=== PATIENT | female | born 1995 | race Caucasian/White ===

== ENCOUNTER 2017-03-27 22:51 | Emergency (ER) | payer MEDICARE, BC ==
[~2017-03-27] VITALS: Ht 152.4 cm; Wt 95.0 kg
[~2017-03-27 22:51] MED LIST: BUPR-34 PO; DICY10CA60 PO; HYDR-3498 PO; NAPR-688 PO; NITR-58 PO; ONDA4TAB14 PO; ZIPR40CA2 PO
[2017-03-27 23:23] VITALS: Ht 152.4 cm; Wt 95.0 kg
[2017-03-28] MEDS ORDERED: morphine 4 MG/ML VIAL IV STA ×2 (01:41→04:45)
[2017-03-28] MEDS ORDERED: ONDANSETRON 4 MG INJ IV STA ×2 (01:41→04:45)
[2017-03-28] MEDS ORDERED: SOD CHLORIDE 0.9% 1,000 ML IV STA (01:41)
[2017-03-28 02:38] LABS: BASOPHIL # 0.1 10^3/ul (0.0-0.1); BASOPHILS % 0.5 % (0.0-2.0); EOSINOPHILS # 0.1 10^3/ul (0.0-0.5); EOSINOPHILS % 1.2 % (0.0-7.0); HEMATOCRIT 42.5 % (37.0-47.0); HEMOGLOBIN 13.6 g/dl (12.0-16.0); LYMPHOCYTES # 3.1 10^3/ul (0.8-2.9); LYMPHOCYTES % 30.2 % (15.0-51.0); MEAN CORPUSCULAR HEMOGLOBIN 30.2 pg (29.0-33.0); MEAN CORPUSCULAR VOLUME 94.4 fl (82.0-101.0); MEAN PLATELET VOLUME 10.9 fl (7.4-10.4); MONOCYTE # 0.8 10^3/ul (0.3-0.9); MONOCYTES % 7.9 % (0.0-11.0); NEUTROPHIL # 6.1 10^3/ul (1.6-7.5); PLATELET COUNT 279 10^3/UL (140-415); RED CELL DISTRIBUTION WIDTH 12.8 % (11.5-14.5); WHITE BLOOD COUNT 10.2 10^3/ul (4.8-10.8)
[2017-03-28 02:48] LABS: ADD UMIC NO; UR ASCORBIC ACID NEGATIVE (NEGATIVE); UR BACTERIA FEW /HPF (NONE SEEN); UR BILIRUBIN (Dip) NEGATIVE (NEGATIVE); UR BLOOD (Dip) NEGATIVE (NEGATIVE); UR BUDDING YEAST MODERATE /HPF (NONE SEEN); UR CLARITY SLIGHTLY CLOUDY (CLEAR); UR COLOR YELLOW (YELLOW); UR GLUCOSE (Dip) NEGATIVE (NEGATIVE); UR KETONES (Dip) NEGATIVE (NEGATIVE); UR LEUKOCYTE ESTERASE (Dip) NEGATIVE Leu/ul (NEGATIVE); UR NITRITE (Dip) NEGATIVE (NEGATIVE); UR RBC 1 /HPF (0-5); UR SPECIFIC GRAVITY (Dip) 1.016 (1.003-1.030); UR SQUAMOUS EPITHELIAL CELL FEW /HPF (FEW); UR TOTAL PROTEIN (Dip) NEGATIVE (NEGATIVE); UR UROBILINOGEN (Dip) NEGATIVE (NEGATIVE)
[2017-03-28 03:02] LABS: ALBUMIN 4.1 g/dl (3.3-4.9); ALBUMIN/GLOBULIN RATIO 1.02; BILIRUBIN,INDIRECT 0.3 mg/dl (0-1.1); BILIRUBIN,TOTAL 0.3 mg/dl (0.2-1.3); CALCIUM 9.6 mg/dl (8.4-10.2); CREATININE 1.02 mg/dl (0.44-1.00); POTASSIUM 3.5 mmol/L (3.5-5.1); TOTAL PROTEIN 8.1 g/dl (6.1-8.1)
--- NOTE | 2017-03-28 03:04 | RADRPT ---
PROCEDURE: CT Abdomen and Pelvis without contrast. CLINICAL INDICATION: Right sided abdominal pain TECHNIQUE: CT scan of the abdomen and pelvis was performed on a multidetector slice CT scanner. No intravenous contrast material was utilized. Sagittal and coronal reformatted images were obtained fr om the axial source images. Images were reviewed on a high-resolution PACS workstation. Exam CTDlvol = 21 mGy and DLP = 1404 Gy-cm. One of the following 3 dose reduction techniques were used: Automate d exposure control; adjustment of the mA and/or kV according to patient size; or use of iterative re construction technique. DICOM images are available. COMPARISON: 03/13/2016. FINDINGS: There is no obstruction or ileus. The appendix is well visualized and normal in size. There is no evidence for diverticulitis. There is no free fluid. The liver is overall normal in size. No intrahepatic lesions are identified. The gallbladder has bee n removed. There is no definite biliary ductal dilation. Pancreas is normal in appearance. The splee n is unremarkable. There are no adrenal masses. The aorta is normal caliber. Kidneys are normal in appearance without hydronephrosis, mass or calculus. There is no perinephric c ollection. Ureters are of normal caliber and without evidence for an obstructing calculus The urinar y bladder is contracted. The uterus and ovaries are grossly unremarkable. Limited evaluation of the lung bases is unremarkable. The bones are unremarkable. IMPRESSION: 1. No bowel obstruction or ileus. 2. No evidence for appendicitis. 3. Status post cholecystectomy. 4. No obstructive uropathy. Contracted urinary bladder. RPTAT: [facility] .Emil Naqvi MD, MD Date Time Electronically viewed and signed by .Emil Naqvi MD, MD on 03/28/2017 03:04 .K/
--- NOTE | 2017-03-28 04:39 | ERD ---
ER Documentation Chief Complaint Chief Complaint BIB SELF, CC; RIGHT RIB PAIN, MORE WHEN MOVING HPI This is a 21-year-old female with history of cholecystectomy who presents emergency department complaining of right upper quadrant abdominal pain 1 week. Patient states the pain is intermittent and currently rates it at a sharp right upper quadrant pain which is worse with movement. Patient reports nausea but denies vomiting, diarrhea, cough, URI symptoms, fever, chills, vaginal discharge, dysuria or hematuria. ROS All systems reviewed and are negative except as per history of present illness. Medications Home Meds Active Scripts Ondansetron (Zofran Odt) 4 Mg Tab.rapdis, 4 MG PO Q8, #20 Prov:SHELIA MATIAS PA-C 03/28/17 Famotidine* (Famotidine*) 20 Mg Tablet, 20 MG PO BID, #60 TAB Prov:SHELIA MATIAS PA-C 03/28/17 Naproxen* (Naprosyn*) 500 Mg Tablet, 500 MG PO BID for 7 Days, TAB Prov:SHELIA MATIAS PA-C 03/28/17 Dicyclomine Hcl* (Bentyl*) 10 Mg Capsule, 10 MG PO QID for 7 Days, CAP Prov:SHELIA MATIAS PA-C 03/28/17 Naproxen* (Naproxen*) 500 Mg Tablet, 500 MG PO BID Y for PAIN, #20 TAB Prov:ANNE MATTHEWS DO 06/15/16 Ondansetron (Ondansetron Odt) 4 Mg Tab.rapdis, 4 MG PO Q6H Y for NAUSEA AND/OR VOMITING, #10 TAB Prov:ANDRES GAUTAM PA-C 03/13/16 Dicyclomine Hcl* (Bentyl*) 10 Mg Capsule, 10 MG PO QID, #15 CAP Prov:ANDRES GAUTAM PA-C 03/13/16 Hydrocodone Bit-Acetaminophen* ([place]*) 5-325 Mg Tab, 1 TAB PO Q4H Y for PAIN, # 30 TAB Prov:ALINE NEUMANN 09/06/15 Nitrofurantoin Monohyd Macrocr* (Macrobid*) 100 Mg Capsr, 100 MG PO BID for 14 Days, CAP Prov:JAVIER SOTO NP 02/16/15 Reported Medications Ziprasidone* (Geodon*) 40 Mg Capsule, 40 MG PO DAILY, CAP 08/30/15 Bupropion Hcl* (Wellbutrin SR*) 150 Mg Tablet.sa, 150 MG PO BID, TAB.SA 08/30/15 Allergies Allergies: Coded Allergies: No Known Allergy (Unverified , 03/28/17) PMhx/Soc Medical and Surgical Hx: pt denies Surgical Hx History of Surgery: Yes (cholecystectomy) Anesthesia Reaction: No Hx Neurological Disorder: No Hx Respiratory Disorders: No Hx Cardiac Disorders: No Hx Psychiatric Problems: Yes (bipolar, schizophrenia) Hx Miscellaneous Medical Probl: No Hx Alcohol Use: No Hx Substance Use: No Hx Tobacco Use: Yes Smoking Status: Current some day smoker Physical Exam Vitals Vital Signs Date Time Temp Pulse Resp B/P Pulse Ox O2 Delivery O2 Flow Rate FiO2 03/28/17 05:25 97.8 92 16 111/68 99 Room Air 03/27/17 23:23 98.5 95 20 120/70 99 Physical Exam Const: Developed, morbidly obese, well-nourished, in no acute distress Head: Atraumatic Eyes: Normal Conjunctiva ENT: Normal External Ears, Nose and Mouth. Neck: Full range of motion..~ No meningismus. Resp: Clear to auscultation bilaterally Cardio: Regular rate and rhythm, no murmurs Abd: Soft, non tender, non distended. Normal bowel sounds. There is a 10 cm palpable mass across the right side midline region. Area is nontender, non- erythematous. Mass is reducible. Skin: No petechiae or rashes Back: No midline or flank tenderness Ext: No cyanosis, or edema Neur: Awake and alert Psych: Normal Mood and Affect Result Diagram: 03/28/17 0200 03/28/17 020 Results 24 hrs Laboratory Tests Test 03/28/17 02:00 White Blood Count 10.210^3/ul Red Blood Count 4.5010^6/ul Hemoglobin 13.6g/dl Hematocrit 42.5% Mean Corpuscular Volume 94.4fl Mean Corpuscular Hemoglobin 30.2pg Mean Corpuscular Hemoglobin Concent 32.0g/dl Red Cell Distribution Width 12.8% Platelet Count 46507^3/UL Mean Platelet Volume 10.9fl Neutrophils % 60.0% Lymphocytes % 30.2% Monocytes % 7.9% Eosinophils % 1.2% Basophils % 0.5% Nucleated Red Blood Cells % 0.0/100WBC Neutrophils # 6.110^3/ul Lymphocytes # 3.110^3/ul Monocytes # 0.810^3/ul Eosinophils # 0.110^3/ul Basophils # 0.110^3/ul Nucleated Red Blood Cells # 0.010^3/ul Urine Color YELLOW Urine Clarity SLIGHTLY CLOUDY Urine pH 6.0 Urine Specific [place] 1.016 Urine Ketones NEGATIVEmg/dL Urine Nitrite NEGATIVEmg/dL Urine Bilirubin NEGATIVEmg/dL Urine Urobilinogen NEGATIVEmg/dL Urine Leukocyte Esterase NEGATIVELeu/ul Urine Microscopic RBC 1/HPF Urine Microscopic WBC 3/HPF Urine Squamous Epithelial Cells FEW/HPF Urine Bacteria FEW/HPF Urine Yeast (Budding) MODERATE/HPF Urine Hemoglobin NEGATIVEmg/dL Urine Glucose NEGATIVEmg/dL Urine Total Protein NEGATIVEmg/dl Sodium Level 145mmol/L Potassium Level 3.5mmol/L Chloride Level 108mmol/L Carbon Dioxide Level 23mmol/L Anion Gap 18 Blood Urea Nitrogen 11mg/dl Creatinine 1.02mg/dl Glucose Level 85mg/dl Calcium Level 9.6mg/dl Total Bilirubin 0.3mg/dl Direct Bilirubin 0.00mg/dl Indirect Bilirubin 0.3mg/dl Aspartate Amino Transf (AST/SGOT) 27IU/L Alanine Aminotransferase (ALT/SGPT) 34IU/L Alkaline Phosphatase 218IU/L Total Protein 8.1g/dl Albumin 4.1g/dl Globulin 4.00g/dl Albumin/Globulin Ratio 1.02 Lipase 92U/L Current Medications Medications (Trade) Dose Ordered Sig/Susan Route PRN Reason Start Time Stop Time Status Last Admin Dose Admin Sodium Chloride (NS) 1,000 ml @ 1,000 mls/hr Q1H STAT IV 03/28/17 01:41 03/28/17 02:40 DC 03/28/17 02:10 Morphine Sulfate (morphine) 4 mg ONCE STAT IV 03/28/17 01:41 03/28/17 01:43 DC 03/28/17 02:10 Ondansetron HCl (Zofran Inj) 4 mg ONCE STAT IV 03/28/17 01:41 03/28/17 01:43 DC 03/28/17 02:10 Morphine Sulfate (morphine) 4 mg ONCE STAT IV 03/28/17 04:45 03/28/17 04:47 DC 03/28/17 04:57 Ondansetron HCl (Zofran Inj) 4 mg ONCE STAT IV 03/28/17 04:45 03/28/17 04:47 DC 03/28/17 04:56 Procedures/MDM PROCEDURE: CT Abdomen and Pelvis without contrast. CLINICAL INDICATION: Right sided abdominal pain TECHNIQUE: CT scan of the abdomen and pelvis was performed on a multidetector slice CT scanner. No intravenous contrast material was utilized. Sagittal and coronal reformatted images were obtained from the axial source images. Images were reviewed on a high-resolution PACS workstation. Exam CTDlvol = 21 mGy and DLP = 1404 Gy-cm. One of the following 3 dose reduction techniques were used: Automated exposure control; adjustment of the mA and/or kV according to patient size; or use of iterative reconstruction technique. DICOM images are available. COMPARISON: 03/13/2016. FINDINGS: There is no obstruction or ileus. The appendix is well visualized and normal in size. There is no evidence for diverticulitis. There is no free fluid. The liver is overall normal in size. No intrahepatic lesions are identified. The gallbladder has been removed. There is no definite biliary ductal dilation. Pancreas is normal in appearance. The spleen is unremarkable. There are no adrenal masses. The aorta is normal caliber. Kidneys are normal in appearance without hydronephrosis, mass or calculus. There is no perinephric collection. Ureters are of normal caliber and without evidence for an obstructing calculus The urinary bladder is contracted. The uterus and ovaries are grossly unremarkable. Limited evaluation of the lung bases is unremarkable. The bones are unremarkable. IMPRESSION: 1. No bowel obstruction or ileus. 2. No evidence for appendicitis. 3. Status post cholecystectomy. 4. No obstructive uropathy. Contracted urinary bladder. RPTAT: [facility]K .Emil Naqvi MD, Date Time Electronically viewed and signed by .Emil Naqvi MD, MD on 03/28/2017 03:04 .K/ CC: SHELIA MATIAS PA-C This is a 21-year-old female with a history of gallbladder disease status post cholecystectomy one year ago who presents emergency department for complaints of right upper quadrant abdominal pain for 1 week. Patient states the pain has been intermittent and associated with nausea. Physical exam unremarkable aside from a right sided abdominal mass, likely in non-incarcerated hernia as it is nontender and reducible. Vital signs reviewed and within normal limits upon arrival. Patient nontoxic and well-nourished upon arrival CBC showed no evidence of systemic infection or severe anemia. CMP showed evidence of elevated sodium likely due to mild dehydration. Otherwise no evidence of significant electrolyte abnormalities, severe acidosis , alkalosis, renal failure, or liver disease. Lipase showed no evidence of acute pancreatitis. UA showed no evidence of acute infection or hematuria. Urine test was negative. CT imaging unremarkable for acute process. Patient received fluids and pain medicine while in the emergency department. Given these findings findings patient's presentation consistent with abdominal pain of unknown etiology. Differential diagnosis includes but not limited to choledocho lithiasis, pneumonia, ectopic , pancreatitis, hernia, pyelonephritis, acute renal calculi, urinary tract infection, appendicitis or diverticulitis. Vision symptoms are well controlled while in the emergency department. I recommended fluids, brat diet, Zofran, and Bentyl. Patient to follow-up with primary care provider to better manage her ongoing abdominal symptoms and for possible referral to a GI specialist. Based on patient's history of present illness and physical examination the decision was made to discharge. The patient was re-evaluated after ED treatment and stabilizing measures, and symptoms have improved. There is no evidence of life threatening injuries or illnesses at this time. On re-examination, patient resting in no distress, stable vital signs, reports feeling better and safe for discharge with outpatient follow up with PMD in 1-2 days. Patient given return precautions. Departure Diagnosis: Primary Impression: RUQ abdominal pain Additional Impression: Nausea SHELIA MATIAS PA-C Mar 28, 2017 04:39
[2017-03-28] MEDS ORDERED: DICY10CA60 PO (04:41)
[2017-03-28] MEDS ORDERED: ONDA4TAB11 PO (04:41)
[2017-03-28] MEDS ORDERED: NAPR-260 PO (04:41)
[2017-03-28] MEDS ORDERED: FAMO20TA18 PO (04:41)
[2017-03-28 05:25] VITALS: BP 111/68; PULSE 92; RESP 16; TEMP 97.8
== END 2017-03-28 05:25 | disposition home or self-care (01) ==
LOC: FTE 22:51
DX: R10.11 Right upper quadrant pain (principal); R11.0 Nausea; F17.210 Nicotine dependence, cigarettes, uncomplicated
CPT/HCPCS: 36415; 74176; 80053; 81001; 83690; 85025; 96374; 96375; 96376; 99285; J2270; J2405; J7030; 81003

== ENCOUNTER 2017-05-06 23:18 | Emergency (ER) | END 2017-05-07 01:09 | disposition home or self-care (01) ==

== ENCOUNTER 2018-02-03 00:05 | Emergency (ER) | END 2018-02-03 03:25 | disposition home or self-care (01) ==